=== PATIENT | female | born 1940 | race Caucasian/White ===

== ENCOUNTER 2018-03-29 07:47 | Outpatient (CLI) | payer MEDICARE, BC ==
--- NOTE | 2018-03-29 11:05 | MRI ---
MRI LUMBAR SPINE NONCONTRAST: DATE: 03-29-18 HISTORY: 77-year-old female with M48.061 spinal stenosis of lumbar region. Low back pain and bilateral lumbar radiculopathy. COMPARISON: No prior MRIs or CTs of the lumbar spine. FINDINGS: There is an approximately 2 x 1 cm well circumscribed oval lesion in the posterior aspect of the left kidney which is T2 hyperintense and T1 isointense to renal parenchyma (imaged 3 of 57, series 6). Th is could be a benign renal cyst, but further evaluation with renal ultrasound is recommended to be reynolds re that this is not a solid renal neoplasm. There are transitional levels at the thoracolumbar lumbar junction and lumbosacral junction. Review o f the chest CT of 03-16-14 demonstrates 13 paired ribs. For the purposes of this report, the level wit h bilaterally small (accessory) ribs will be designated at L1. Consequently, the last lumbar type conner tebra will be L6 rather than L5. Vertebral body heights are maintained. There is a mild lateral curvature of the lumbar spine. T12-L1: Not included on axial images. Moderate disc space narrowing. Diffuse disc bulge. No severe ce ntral stenosis. Mild to moderate bilateral neural foraminal stenosis. L1-2: Disc space maintained. Mild disc bulge. Conus medullaris terminates at upper to mid L2 level. N o central stenosis. Mild to moderate right neural foraminal stenosis. No significant left neural for aminal stenosis. L2-3: Mild disc bulge. No central stenosis. Mild to moderate bilateral neural foraminal stenosis. Mil d disc space narrowing. L3-4: Mild to moderate disc space narrowing. Mild diffuse disc bulge. Moderate bilateral neural juan inal stenosis, right greater than left. Mild central stenosis. Mild right degenerative facet changes. L4-5: Moderate disc space narrowing. Prominent diffuse disc bulge. Mild to moderate right neural fora [place] stenosis. Moderate left neural foraminal stenosis. Mild to moderate central spinal canal stenos is. Mild to moderate thecal sac stenosis. Mild bilateral degenerative facet changes. L5-6: Moderate to severe disc space narrowing, especially on the left side, where there is Modic type I bone marrow edema of the endplates, with numerous tiny endplate irregularities. Mild right neural foraminal stenosis. Moderate left neural foraminal stenosis. Mild right degenerative facet change. Mo derate left degenerative facet changes. Mild to moderate central spinal canal stenosis. L6-S1: Slightly hypoplastic disc without significant degenerative changes. No central or neural juan inal stenosis. No significant degenerative facet changes. IMPRESSION: 1. Transitional levels at thoracolumbar junction and lumbosacral junction (including L6). 2. Lumbar spondylosis, with multilevel mild and moderate degenerative disc disease, worst on the left side at L5-6. 3. Several levels of mild/moderate neural foraminal stenosis. 4. No severe central spinal canal stenosis at any level. 5. A 2 cm left renal lesion. Recommend further evaluation, beginning with renal ultrasound. LEE Marley POS: [facility]
== END 2018-03-29 07:48 | disposition home or self-care (01) ==
LOC: TBSIIMAG 07:47
PROVIDERS: ATTEND Orthopaedic Surgery
DX: M48.061 Spinal stenosis, lumbar region without neurogenic claudication (principal); M47.896 Other spondylosis, lumbar region; M51.36 Other intervertebral disc degeneration, lumbar region; M99.83 Other biomechanical lesions of lumbar region; N28.89 Other specified disorders of kidney and ureter
CPT/HCPCS: 72148

== ENCOUNTER 2018-04-08 09:16 | Outpatient (CLI) | payer MEDICARE, BC | END 2018-04-08 09:17 | disposition home or self-care (01) | LOC: BICULT 09:16 | PROVIDERS: ATTEND Urology | DX: N39.41 Urge incontinence (principal); R33.9 Retention of urine, unspecified; M54.5 Low back pain; G89.29 Other chronic pain | CPT/HCPCS: 76770 ==

== ENCOUNTER 2018-08-12 01:48 | Emergency (ER) | payer BC, MEDICARE ==
[2018-08-12] MEDS ORDERED: cloNIDine 0.1 MG TAB PO SCH (05:30)
--- NOTE | 2018-08-12 12:17 | RAD ---
PORTABLE CHEST: Date 08/12/18 HISTORY: Chest pain. FINDINGS: Lungs appear clear of infiltrate. No evidence of vascular congestion. Heart size upper normal range. IMPRESSION: No acute process. POS: [facility]
--- NOTE | 2018-08-12 13:03 | CT ---
CT PULMONARY ANGIOGRAM WITH IV CONTRAST AND 3D POSTPROCESSING: HISTORY: Chest pain, recent back surgery. FINDINGS: There is good contrast opacification of the pulmonary arterial vasculature without filling defect to suggest pulmonary embolism. There is mild dilatation of the right main pulmonary artery. The possib ility of pulmonary arterial hypertension should be considered. The thoracic aorta is well opacified without aneurysm or dissection. No pleural or pericardial effusions are identified. There are mild dependent changes of the lung bases. No pneumothoraces, lobar consolidation, or lung masses are seen . There are degenerative changers in the spine. A moderate-sized hiatal hernia is present. IMPRESSION: No CT evidence of pulmonary embolism. Findings were discussed in person with Dr. Henry at 5:50 a.m. DOMINICK SWAN POS: [facility]
[2018-08-12] MEDS ORDERED: ISOVUE-370 76%-LOCM 1 ML ONE (15:04)
[2018-08-12 17:25] LABS: ALT (SGPT) 15 U/L (8-55); AST (SGOT) 21 U/L (5-34); Albumin 3.5 g/dL (3.4-4.8); Alkaline Phosphatase 87 U/L (40-150); Anion Gap 12 mmol/L (10-20); BUN (Urea Nitrogen) 10 mg/dL (9.8-20.1); Bilirubin, Total 0.4 mg/dL (0.2-1.2); Calc. Creatinine Clearance 0 mL/min (70-130); Carbon Dioxide 23 mmol/L (23-31); Chloride 105 mmol/L (98-107); Estimated GFR-MDRD 70; Globulin 3.3 g/dL (2.4-3.5); Glucose 103 mg/dL (83-110); Potassium 3.5 mmol/L (3.5-5.1); Protein, Total 6.8 g/dL (6.0-8.3); Sodium 136 mmol/L (136-145)
[2018-08-12 17:26] LABS: #Eosinphils 0.2 thou/uL (0.0-0.7); #Lymphocytes 1.1 thou/uL (1.20-3.40); #Monocytes 0.5 thou/uL (0.11-0.59); #Neutrophils 3.6 thou/uL (1.40-6.50); %Basophils 0.7 % (0.0-1.0); %Eosinophils 3.3 % (0.0-10.0); %Lymphocytes 20.3 % (21.0-51.0); %Monocytes 9.4 % (0.0-10.0); %Neutrophils 66.4 % (42.0-75.0); CKMB 1.5 ng/mL (0-6.6); Hemoglobin 10.2 g/dL (12.0-16.0); Mean Corpuscular HGB CONC 33.6 g/dL (32.0-36.0); Mean Corpuscular Volume 92.4 fL (78.0-98.0); Mean Platelet Volume 6.9 fL (7.4-10.4); Platelet Count 423 thou/uL (130-400); RBC Distribution Width 11.2 % (11.5-14.5); Red Blood Cell (RBC) Count 3.29 mill/uL (4.20-5.40); Troponin I Less than 0.010 ng/mL (< 0.028); White Blood Cell (WBC) Count 5.4 thou/uL (4.8-10.8)
[2018-08-12 19:13] LABS: INR-International Normal Ratio 1.4; PTT 37.6 SEC (22.9-36.1); Prothrombin Time 17.2 SEC (12.0-14.7)
== END 2018-08-12 11:34 | disposition home or self-care (01) ==
LOC: ERS 01:48
DX: R07.2 Precordial pain (principal); I48.91 Unspecified atrial fibrillation; K21.9 Gastro-esophageal reflux disease without esophagitis; I10 Essential (primary) hypertension; F41.9 Anxiety disorder, unspecified
CPT/HCPCS: 71045; 71275; 80053; 82553; 84484; 85025; 85610; 85730; 93005

== ENCOUNTER 2018-08-18 14:22 | Observation (INO) | payer MEDICARE, BC ==
[2018-08-18 15:20] LABS: #Basophils 0.1 thou/uL (0.0-0.2); #Eosinphils 0.2 thou/uL (0.0-0.7); #Lymphocytes 1.6 thou/uL (1.20-3.40); #Monocytes 0.6 thou/uL (0.11-0.59); #Neutrophils 3.3 thou/uL (1.40-6.50); %Basophils 1.1 % (0.0-1.0); %Eosinophils 2.9 % (0.0-10.0); %Lymphocytes 28.2 % (21.0-51.0); %Monocytes 10.3 % (0.0-10.0); %Neutrophils 57.5 % (42.0-75.0); Hemoglobin 12.3 g/dL (12.0-16.0); Mean Corpuscular Hemoglobin 29.5 pg (27.0-31.0); Mean Corpuscular Volume 95.1 fL (78.0-98.0); Mean Platelet Volume 6.8 fL (7.4-10.4); Platelet Count 411 thou/uL (130-400); RBC Distribution Width 11.6 % (11.5-14.5); Red Blood Cell (RBC) Count 4.16 mill/uL (4.20-5.40); White Blood Cell (WBC) Count 5.8 thou/uL (4.8-10.8)
--- NOTE | 2018-08-18 15:23 | RAD ---
CHEST ONE VIEW PORTABLE: History: 68-year-old female with history of dyspnea and shortness of breath. Comparison: 08-12-18 FINDINGS: Monitor leads overlie the chest. Stable pleural thickening and calcification in the left upper outer chest wall region. No confluent pneumonia, overt edema, or pleural effusion. IMPRESSION: Chronic stable changes. No acute intrathoracic disease. POS: [facility]
[2018-08-18 15:43] LABS: ALT (SGPT) 16 U/L (8-55); AST (SGOT) 24 U/L (5-34); Albumin 3.9 g/dL (3.4-4.8); Alkaline Phosphatase 135 U/L (40-150); Anion Gap 13 mmol/L (10-20); BUN (Urea Nitrogen) 11 mg/dL (9.8-20.1); Bilirubin, Total 0.4 mg/dL (0.2-1.2); CK (CPK) 82 U/L (29-168); Calc. Creatinine Clearance 0 mL/min (70-130); Calcium 9.5 mg/dL (7.8-10.44); Carbon Dioxide 19 mmol/L (23-31); Chloride 108 mmol/L (98-107); Estimated GFR-MDRD 62; Globulin 3.9 g/dL (2.4-3.5); Glucose 93 mg/dL (83-110); Potassium 4.4 mmol/L (3.5-5.1); Protein, Total 7.8 g/dL (6.0-8.3); Sodium 136 mmol/L (136-145)
[2018-08-18 15:48] LABS: CKMB 1.5 ng/mL (0-6.6)
[2018-08-18 16:03] LABS: Troponin I Less than 0.010 ng/mL (< 0.028)
[2018-08-18] MEDS ORDERED: Nitroglycerin 0.4 MG TAB (25 Tab Bottle) ONE (17:13)
[2018-08-18 19:52] LABS: Troponin I Less than 0.010 ng/mL (< 0.028)
[2018-08-18 22:46] VITALS: BMI 25.7
[2018-08-18 22:59] LABS: Troponin I Less than 0.010 ng/mL (< 0.028)
[2018-08-19] MEDS ORDERED: Nitroglycerin 0.4 MG TAB (25 Tab Bottle) PO PRN (02:51)
[2018-08-19] MEDS ORDERED: ALPRAZolam 0.25 MG TAB PO PRN (02:53)
[2018-08-19] MEDS ORDERED: Ondansetron ODT 4 MG TAB PO PRN (02:56)
--- NOTE | 2018-08-19 03:48 | HP ---
CHIEF COMPLAINT: Shortness of breath. HISTORY OF PRESENT ILLNESS: This is a 77-year-old pleasant female with past medical history of atrial fibrillation, GERD, hypertension, benign positional vertigo, anxiety, presenting with shortness of breath, which started in the morning of admission. Per the patient, her shortness of breath was accompanied with some chest tightness. Patient denies any cough, fever, nausea, vomiting, abdominal pain states that nothing seems to really help with this conditions and this is the reason why she came to the ED. Patient denies any fever, chills , cough, diaphoresis, nausea. REVIEW OF SYSTEMS: Positive for shortness of breath, chest pressure, otherwise as documented in the HPI. All other systems were reviewed and are negative. PAST MEDICAL HISTORY: Arrhythmia, such as atrial fibrillation, GERD, hypertension, vertigo. FAMILY HISTORY: Reviewed and noncontributory. PAST SURGICAL HISTORY: Bladder suspension, cholecystectomy, hysterectomy, hip replacement, and back surgery 2 weeks ago. PSYCHIATRIC HISTORY: Anxiety. SOCIAL HISTORY: Patient denies any illicit drug use. Patient denies any alcohol use and patient denies any tobacco use. Patient lives at home alone. KNOWN ALLERGIES: Patient is allergic to CIPRO, DEMEROL, PENICILLIN, and SULFA. CURRENT MEDICATIONS: Patient is on Eliquis 5 mg, alprazolam 0.5 t.i.d., amlodipine 5 mg, Multaq 4 mg, Coreg. PHYSICAL EXAMINATION: VITAL SIGNS: Blood pressure 158/98, pulse is 72, respiratory rate of 16, temperature of 98.5, O2 sat is 100. GENERAL: Patient is alert, oriented x3, not in acute distress. Patient is lying in bed comfortably, speaking in full sentences. HEENT: Normocephalic, atraumatic. Pupils are equal, round, and react to light. Extraocular movements are intact. No scleral icterus. No conjunctival pallor. Mucous membranes are moist. NECK: No JVDs. Trachea is midline. LUNGS: Clear to auscultation bilaterally. No wheezing, no rales, no rhonchi appreciated. CARDIOVASCULAR: Positive S1, S2. Regular rate and rhythm. No murmurs, no gallops or rubs appreciated. ABDOMEN: Soft, nontender, nondistended, positive bowel sounds in all quadrants. No guarding, no rigidity. BACK: Surgical site in the back is well healed. No signs of infection. EXTREMITIES: Upper extremity, patient had 5/5 upper extremity strength and 5/5 in lower extremity strength with good pulses bilaterally in the upper extremity and lower extremities. No edema noted. NEUROLOGIC: Cranial nerves II-XII grossly intact. No neurologic deficits noted. SKIN: Warm, dry, and intact. PSYCHIATRIC: Normal affect. IMAGING: EKG shows atrial fibrillation with controlled ventricular response. EMERGENCY DEPARTMENT COURSE: Patient received aspirin and nitroglycerin. LABORATORY DATA: WBC is 5.8, hemoglobin 12.3, hematocrit is 39.5, platelet count is 411. Sodium is 136, potassium is 4.4, chloride is 108, carbon dioxide of 19, BUN of 11, creatinine of 0.88. AST 24, ALT 16, alkaline phosphatase 135. Troponin is less than 0.010 x2. ASSESSMENT AND PLAN: This is a 77-year-old female being admitted for: 1. Chest pain, rule out acute coronary syndrome. We have ordered echo stress test and we will follow up on these test. Patient has been started on aspirin. We will start patient on her home medications. Currently, patient is made n.p.o. for the procedure of stress test in the morning. 1. Deep venous thrombosis and gastrointestinal prophylaxis, patient is on Eliquis and we will continue Pepcid. 2. History of atrial fibrillation, currently controlled. We will continue patient on her current medications. 3. History of anxiety, currently stable. We will continue patient on her current management. 4. History of gastroesophageal reflux disease. Currently, patient is on Pepcid. We will continue. 5. History of vertigo. Currently, patient is stable. 6. Hypertension. Patient is currently stable on her home medications. MTDD
[2018-08-19] MEDS: Acetaminophen 325 MG TAB PO PRN ×2 (04:59→23:36)
[2018-08-19 05:05] LABS: #Eosinphils 0.2 thou/uL (0.0-0.7); #Lymphocytes 1.3 thou/uL (1.20-3.40); #Monocytes 0.6 thou/uL (0.11-0.59); #Neutrophils 3.5 thou/uL (1.40-6.50); %Basophils 0.4 % (0.0-1.0); %Eosinophils 3.2 % (0.0-10.0); %Lymphocytes 23.8 % (21.0-51.0); %Monocytes 10.3 % (0.0-10.0); %Neutrophils 62.3 % (42.0-75.0); Hemoglobin 11.5 g/dL (12.0-16.0); Mean Corpuscular HGB CONC 32.4 g/dL (32.0-36.0); Mean Corpuscular Hemoglobin 29.9 pg (27.0-31.0); Mean Corpuscular Volume 92.3 fL (78.0-98.0); Mean Platelet Volume 6.9 fL (7.4-10.4); Platelet Count 473 thou/uL (130-400); RBC Distribution Width 11.4 % (11.5-14.5); Red Blood Cell (RBC) Count 3.84 mill/uL (4.20-5.40); White Blood Cell (WBC) Count 5.6 thou/uL (4.8-10.8)
[2018-08-19 05:21] LABS: Anion Gap 9 mmol/L (10-20); BUN (Urea Nitrogen) 7 mg/dL (9.8-20.1); Calc. Creatinine Clearance 69 mL/min (70-130); Calcium 9.1 mg/dL (7.8-10.44); Carbon Dioxide 24 mmol/L (23-31); Chloride 108 mmol/L (98-107); Estimated GFR-MDRD 68; Glucose 100 mg/dL (83-110); Sodium 137 mmol/L (136-145)
[2018-08-19] MEDS ORDERED: Carvedilol 3.125 MG TAB PO SCH ×2 (09:00→14:15)
[2018-08-19] MEDS ORDERED: Amlodipine 5 MG TAB PO SCH ×2 (09:00→14:15)
[2018-08-19] MEDS: Famotidine 20 MG TAB PO SCH ×2 (12:28→20:33)
[2018-08-19] MEDS: Dronedarone HCl 400 MG TAB PO SCH ×2 (12:28→18:38)
[2018-08-19] MEDS: Apixaban 5 MG TAB PO SCH ×2 (12:28→20:33)
[2018-08-19] MEDS: Prevnar 13-Val Conj/PF 0.5 ML SYRINGE IM ONE ×2 (12:28→12:37)
--- NOTE | 2018-08-19 12:51 | NM ---
RADIONUCLIDE STRESS REST MYOCARDIAL PERFUSION SCAN WITH CT ATTENUATION CORRECTION AND SPECT IMAGING LEFT VENTRICULAR WALL MOTION EVALUATION AND EJECTION FRACTION: FINDINGS: Adenosine protocol. There is homogeneous uptake of radiotracer throughout the left ventricular myocar dium. No focal perfusion defect or reversibility. QGS analysis of gated SPECT images shows no focal wall motion abnormalities. Ejection fraction calculated at greater than 80%. IMPRESSION: Normal myocardial perfusion scan. Normal left ventricular ejection fraction. POS: [facility]
--- NOTE | 2018-08-19 13:31 | PDOC.EVN ---
Event Note - Event Note Event Note: Pt seen and examined with Go Coulter PA-C. I have seen and evaluated the pateint and reviewed all documentations. I agree with the findings and plan as outlined in his note for stress test, normal. Echo pending
[2018-08-19] MEDS ORDERED: hydrALAZINE 20 MG/ML VIAL SLOW IVP PRN (14:01)
[2018-08-19] MEDS ORDERED: ADENOSINE 60 MG/20 ML VIAL ONE (15:13)
--- NOTE | 2018-08-19 17:18 | PDOC.PN ---
- Subjective Encounter Start Date: 08/19/18 Encounter Start Time: 17:16 Patient lying in bed, she reports some chest pressure. Troponins negative x3. She underwent stress test which was found to be unremarkable. BP elevated today , so her home norvasc and coreg were increased. Echo results pending. No shortness of breath, abdominal pain, nausea, vomiting. She remains in sinus rhythm on the monitor. - Objective Resuscitation Status: Resuscitation Status FULL:Full Resuscitation MAR Reviewed: Yes Vital Signs & Weight: Vital Signs (12 hours) Temp Pulse Pulse Pulse Resp BP BP 08/19/18 15:33 97.9 F 66 15 08/19/18 15:21 69 08/19/18 13:57 69 08/19/18 12:28 87 08/19/18 12:07 76 79 144/70 H 197/83 H 08/19/18 11:41 97.3 F L 87 24 H 08/19/18 07:46 97.8 F 72 20 BP Pulse Ox Pulse Ox Pulse Ox 08/19/18 15:33 157/74 H 95 08/19/18 15:21 08/19/18 13:57 189/81 H 08/19/18 12:28 08/19/18 12:07 99 98 08/19/18 11:41 199/88 H 97 08/19/18 07:46 192/85 H 96 Weight Weight 164 lb 3.2 oz I&O: 08/18/18 08/19/18 08/20/18 06:59 06:59 06:59 Output Total 300 Balance -300 Result Diagrams: 08/19/18 04:37 08/19/18 04:37 Radiology Reviewed by me: Yes EKG Reviewed by me: Yes Phys Exam - Physical Examination Constitutional: NAD HEENT: PERRLA, moist MMs, sclera anicteric, oral pharynx no lesions Neck: no nodes, no JVD, supple Respiratory: no wheezing, no rales, no rhonchi, clear to auscultation bilateral Cardiovascular: RRR, no significant murmur, no rub Gastrointestinal: soft, non-tender, no distention Musculoskeletal: no edema, pulses present Neurological: non-focal, normal sensation, moves all 4 limbs Lymphatic: no nodes Psychiatric: normal affect, A&O x 3 Skin: no rash, normal turgor, cap refill <2 seconds Deviation from normal: Face is flush, but she denies fever/chills or any symptoms at this time Dx/Plan (1) Chest pain Code(s): R07.9 - CHEST PAIN, UNSPECIFIED Status: Acute (2) Shortness of breath Code(s): R06.02 - SHORTNESS OF BREATH Status: Acute (3) Hypertension Code(s): I10 - ESSENTIAL (PRIMARY) HYPERTENSION Status: Acute (4) History of atrial fibrillation Code(s): Z86.79 - PERSONAL HISTORY OF OTHER DISEASES OF THE CIRCULATORY SYSTEM Status: Acute - Plan cont current plan of care * Cardiology services following, stress test results discussed with patient. Echo results pending * Increase home norvasc to 10mg daily, coreg to 6.25mg * Hold discharge for echo results, likely discharged in the am if BP stable and echo negative
[2018-08-19] MEDS: Carvedilol 6.25 MG TAB PO SCH (18:38)
[2018-08-20 08:26] VITALS: TEMP 97.3
[2018-08-20] MEDS ORDERED: Amlodipine 10 MG TAB PO SCH (09:00)
[2018-08-20] MEDS: Carvedilol 6.25 MG TAB PO SCH (09:38)
[2018-08-20] MEDS: Famotidine 20 MG TAB PO SCH (09:39)
[2018-08-20] MEDS: Apixaban 5 MG TAB PO SCH (09:39)
[2018-08-20] MEDS: Dronedarone HCl 400 MG TAB PO SCH (09:40)
[2018-08-20 12:01] VITALS: BP 148/68
--- NOTE | 2018-08-20 14:45 | DIS ---
DATE OF ADMISSION: 08/18/2018 DATE OF DISCHARGE: 08/20/2018 DISCHARGE DIAGNOSES: 1. Chest pain, noncardiac. 2. Shortness of breath, resolved. 3. Hypertension, stable. 4. History of atrial fibrillation, currently controlled. 5. History of anxiety, stable. 6. History of gastroesophageal reflux disease, stable. 7. History of vertigo, stable. CONSULTATIONS: Cardiology services, Dr. Gann. PERTINENT LABORATORY AND DIAGNOSTIC FINDING: WBC 5.6, RBC 3.84, hemoglobin 11.5. Sodium 137, potass ium 4.0. Troponin less than 0.010 x3. AST 24, ALT 16. Portable chest x-ray revealed chronic stable changes with no acute disease. Cardiac stress test showed normal myocardial perfusion scan with nor mal left ventricular ejection fraction. Echocardiogram shows an EF of 55%-60%. HOSPITAL COURSE: Ms. Macias is a pleasant 77-year-old female who had presented to the ER with some c omplaints of chest pain, shortness of breath. She had noted symptoms for about one day before coming into the ER. She has a history of atrial fibrillation, she had remained in sinus rhythm throughout the hospital course. She also has a history of hypertension, anxiety, vertigo, and GERD. She was pl aced on her home medications, there was a consult placed for Cardiology, Dr. Gann. She was admitted to telemetry on observation floor, serial troponins were obtained which were found to be negative x3. She underwent cardiac stress test which revealed a normal myocardial perfusion scan, normal left ve ntricular EF. She also underwent an echocardiogram which revealed left ventricular EF of 55%-60%. D hospital course, it was found that she had a notable elevated blood pressure, her home medicati ons which included amlodipine and carvedilol were increased. Carvedilol was increased to 6.25 and am lodipine was increased to 10 mg daily. She had tolerated this well, and her blood pressure did in fa ct improve. She was provided with a 30-day supply of both of these new changes in her medications. She was seen and examined prior to discharge and she remained asymptomatic, no chest pain, no shortne ss of breath, no abdominal pain. No further symptoms at that time. Discharge care plan was then exp lained to her at that time to continue with increased dose of Norvasc and Coreg. She had verbalized her understanding of this care plan and she also was instructed to follow up with her primary care ph ysician, Dr. Jere Mooney. She then was determined to be medically stable for discharge home 018. DISCHARGE MEDICATIONS: 1. Amlodipine 10 mg daily. 2. Carvedilol 6.25 mg twice daily with meals. 3. Xanax 0.5 mg 3 times daily as needed for anxiety. 4. Multaq 40 mg twice daily with meals. 5. Eliquis 5 mg daily. FOLLOWUP: The patient is to follow up with her primary care physician, Dr. Mooney in 1-2 weeks, she is also to follow up with Dr. Gann, her primary manager pool in 1-2 weeks, she was instructed to allan l Dr. Gann' office and schedule an appointment at that time. CONDITION ON DISCHARGE: Stable. ACTIVITY: As tolerated. DIET: Heart healthy. CODE STATUS: FULL CODE. DISPOSITION: Home on 08/20/2018.
--- NOTE | 2018-08-22 08:32 | STRESS ---
Acquisition Time: 2018-08-19 10:24:28 Total Exercise Time: 00:04:00 Test Indications: CHEST PAIN Medications: Protocol: ADENOSINE Max HR: 095 BPM 65% of Pred: 144 BPM Max BP: 130/074 mmHG Max Work Load: 1.0 METS RESTING ECG: NORMAL SINUS RHYTHM AT 68 BPM WITH A COMPLETE RIGHT BUNDLE BRANCH BLOCK AND A LEFT AXIS DEVIATION. SYMPTOMS: DYSPNEA ON EXERTION; CHEST TIGHTNESS NORMAL BLOOD PRESSURE RESPONSE ECTOPY: NONE ECG STRESS: NO SIGNIFICANT CHANGES INTERPRETATION: INDETERMINATE ECG/ AWAIT NUCLEAR IMAGES FOR DEFINITIVE DIAGNOSIS Confirmed by RENE FORBES ([id number]) on 08/22/2018 8:32:22 AM Referred By: DO Teresita LIRA Confirmed By:RENE FORBES
== END 2018-08-20 12:00 | disposition home or self-care (01) ==
LOC: ERS 14:22 → 2SW 18:58
PROVIDERS: ADMIT Internal Medicine; ATTEND Internal Medicine
DX: R07.89 Other chest pain (principal); R06.02 Shortness of breath; I48.91 Unspecified atrial fibrillation; K21.9 Gastro-esophageal reflux disease without esophagitis; I10 Essential (primary) hypertension; F41.9 Anxiety disorder, unspecified; R42 Dizziness and giddiness; Z79.01 Long term (current) use of anticoagulants; Z79.899 Other long term (current) drug therapy; Z88.0 Allergy status to penicillin; Z88.1 Allergy status to other antibiotic agents; Z88.2 Allergy status to sulfonamides; Z88.5 Allergy status to narcotic agent
CPT/HCPCS: 71045; 78452; 80048; 80053; 82550; 82553; 84484 ×2; 85025 ×2; 90670; 93005; 93017; 93306; 94760; 97116 ×2; 97530; 99285; A9500; G0009; G0378 ×2; G8978; G8979; 36415; 90471; J0153; J0360

== ENCOUNTER 2019-06-05 14:40 | Emergency (ER) | payer MEDICARE, BC ==
[~2019-06-05 14:40] MED LIST: ISOVUE-370 76%-LOCM 1 ML ONE
[2019-06-05 15:16] LABS: #Eosinphils 0.2 thou/uL (0.0-0.7); #Lymphocytes 2.1 thou/uL (1.20-3.40); #Monocytes 0.7 thou/uL (0.11-0.59); %Basophils 0.1 % (0.0-1.0); %Eosinophils 2.3 % (0.0-10.0); %Lymphocytes 30.6 % (21.0-51.0); %Monocytes 9.5 % (0.0-10.0); %Neutrophils 57.5 % (42.0-75.0); Hemoglobin 13.5 g/dL (12.0-16.0); Mean Corpuscular HGB CONC 32.9 g/dL (32.0-36.0); Mean Corpuscular Hemoglobin 29.5 pg (27.0-31.0); Mean Corpuscular Volume 89.5 fL (78.0-98.0); Platelet Count 338 thou/uL (130-400); RBC Distribution Width 11.8 % (11.5-14.5); Red Blood Cell (RBC) Count 4.57 mill/uL (4.20-5.40)
[2019-06-05 15:34] LABS: ALT (SGPT) 12 U/L (8-55); AST (SGOT) 21 U/L (5-34); Albumin 4.3 g/dL (3.4-4.8); Alkaline Phosphatase 95 U/L (40-150); Anion Gap 14 mmol/L (10-20); BUN (Urea Nitrogen) 10 mg/dL (9.8-20.1); Bilirubin, Total 0.4 mg/dL (0.2-1.2); Calc. Creatinine Clearance 0 mL/min (70-130); Calcium 10.1 mg/dL (7.8-10.44); Carbon Dioxide 22 mmol/L (23-31); Chloride 105 mmol/L (98-107); Estimated GFR-MDRD 50; Glucose 89 mg/dL (83-110); Lipase 26 U/L (8-78); Potassium 4.1 mmol/L (3.5-5.1); Protein, Total 8.3 g/dL (6.0-8.3); Sodium 137 mmol/L (136-145)
--- NOTE | 2019-06-05 17:49 | CT ---
CT of the abdomen and pelvis: 06/05/2019 COMPARISON: None HISTORY: Diarrhea, nausea, weakness TECHNIQUE: Axial CT imaging at 5 mm intervals from lung bases through pubic symphysis with IV contras t. Coronal reformatted imaging obtained. FINDINGS: The imaged lung bases are unremarkable. No free intraperitoneal air or fluid is seen. There is a moderate-sized hiatal hernia. The spleen, liver, adrenal glands, and kidneys are unremarkable. The gallbladder is nonvisualized sug gesting prior cholecystectomy. There is postoperative hardware associated with fusion surgery at the lumbosacral junction. There is a hip arthroplasty on the left. Streak artifact limits detailed assessment of the left hemipelvis. There is no evidence for bowel inflammatory change or bowel obstruction. The appendix is not discrete ly visualized but no right lower quadrant inflammatory change is seen. Scattered atherosclerotic calcification of the abdominal aorta and its branches noted. No abdominal o r pelvic lymphadenopathy. Review of the osseous structures demonstrates no acute osseous abnormality. IMPRESSION: Multiple incidental findings as detailed above. No acute findings are seen.
[2019-06-05 18:36] LABS: Bilirubin Negative (Negative); Blood, Urine Negative (Negative); Clarity Turbid (Clear); Glucose, Urine (Dipstick) Normal (Negative); Leukocyte 500 Leu/uL (Negative); Nitrite 2+ (Negative); Protein, Urine (Dipstick) Negative (Neg-Trace); Squamous Epithelial 0-3 HPF (0-3); Urobilinogen Normal mg/dL (Less than 2); WBC/HPF Greater than 50 HPF (0-3)
[2019-06-05 18:46] LABS: Bacteria/HPF 3+ HPF (None Seen); RBC/HPF 0-3 HPF (0-3)
== END 2019-06-05 19:35 | disposition home or self-care (01) ==
LOC: ERS 14:40
DX: N39.0 Urinary tract infection, site not specified (principal); R19.7 Diarrhea, unspecified; I48.91 Unspecified atrial fibrillation; I10 Essential (primary) hypertension; K21.9 Gastro-esophageal reflux disease without esophagitis
CPT/HCPCS: 36415; 74177; 80053; 81003; 81015; 83690; 83735; 84484; 85025; 87077; 87086; 87186; 93005; Q9966

== ENCOUNTER 2024-01-05 16:24 | Inpatient (IN) | payer MEDICARE ==
[2024-01-05 17:05] LABS: #Eosinphils 0.2 thou/uL (0.0-0.7); #Monocytes 0.7 thou/uL (0.11-0.59); #Neutrophils 3.3 thou/uL (1.40-6.50); %Basophils 0.6 % (0.0-1.0); %Eosinophils 3.8 % (0.0-10.0); %Lymphocytes 31.9 % (21.0-51.0); %Monocytes 11.2 % (0.0-10.0); %Neutrophils 52.3 % (42.0-75.0); Hematocrit 27.3 % (36.0-47.0); Hemoglobin 8.7 g/dL (12.0-16.0); Mean Corpuscular HGB CONC 31.9 g/dL (32.0-36.0); Mean Corpuscular Hemoglobin 28.2 pg (27.0-31.0); Mean Corpuscular Volume 88.6 fl (78.0-98.0); Mean Platelet Volume 9.5 fL (7.4-10.4); Platelet Count 342 10x3/uL (130-400); RBC Distribution Width 13.9 % (11.5-14.5); Red Blood Cell (RBC) Count 3.08 mill/uL (4.20-5.40); White Blood Cell (WBC) Count 6.4 10x3/uL (4.8-10.8)
[2024-01-05 17:23] LABS: ALT (SGPT) 13 U/L (8-55); AST (SGOT) 21 U/L (5-34); Alkaline Phosphatase 140 U/L (40-110); Anion Gap 12 mmol/L (10-20); BUN (Urea Nitrogen) 22 mg/dL (9.8-20.1); Bilirubin, Total 0.2 mg/dL (0.2-1.2); Calc. Creatinine Clearance 0 mL/min (70-130); Calcium 9.1 mg/dL (7.8-10.44); Carbon Dioxide 23 mmol/L (23-31); Chloride 105 mmol/L (98-107); Estimated GFR 40; Globulin 3.4 g/dL (2.4-3.5); Glucose 94 mg/dL (83-110); Magnesium 2.1 mg/dL (1.6-2.6); Potassium 4.7 mmol/L (3.5-5.1); Protein, Total 7.4 g/dL (5.8-8.1); Sodium 135 mmol/L (136-145)
[2024-01-05 17:25] LABS: Troponin I Less than 0.010 ng/mL (< 0.028)
[2024-01-05] MEDS ORDERED: Acetaminophen 500 MG TAB ONE (17:52)
[2024-01-05] MEDS ORDERED: Nitroglycerin 0.4 MG TAB (25 Tab Bottle) SL PRN (20:16)
[2024-01-05] MEDS ORDERED: Ondansetron ODT 4 MG TAB PO PRN (20:17)
[2024-01-05] MEDS ORDERED: Acetaminophen 325 MG TAB PO PRN (20:17)
[2024-01-05] MEDS ORDERED: ALPRAZolam 0.5 MG TAB PO PRN (20:36)
[2024-01-05 20:57] VITALS: BMI 27.1
[2024-01-05] MEDS ORDERED: Famotidine 20 MG TAB ONE (21:07)
[2024-01-05] MEDS: Famotidine 20 MG TAB PO SCH (21:08)
[2024-01-05] MEDS: Lactated Ringer's 500 ML IV SCH (21:21)
[2024-01-06 00:35] LABS: Troponin I Less than 0.010 ng/mL (< 0.028)
[2024-01-06 03:59] LABS: #Eosinphils 0.3 thou/uL (0.0-0.7); #Monocytes 0.6 thou/uL (0.11-0.59); #Neutrophils 2.6 thou/uL (1.40-6.50); %Basophils 0.8 % (0.0-1.0); %Eosinophils 4.9 % (0.0-10.0); %Lymphocytes 31.8 % (21.0-51.0); %Monocytes 11.1 % (0.0-10.0); %Neutrophils 51.2 % (42.0-75.0); Hematocrit 27.4 % (36.0-47.0); Hemoglobin 8.7 g/dL (12.0-16.0); Mean Corpuscular HGB CONC 31.8 g/dL (32.0-36.0); Mean Corpuscular Hemoglobin 27.6 pg (27.0-31.0); Mean Platelet Volume 9.3 fL (7.4-10.4); Platelet Count 325 10x3/uL (130-400); RBC Distribution Width 13.9 % (11.5-14.5); Red Blood Cell (RBC) Count 3.15 mill/uL (4.20-5.40); White Blood Cell (WBC) Count 5.1 10x3/uL (4.8-10.8)
[2024-01-06 04:17] LABS: Anion Gap 13 mmol/L (10-20); BUN (Urea Nitrogen) 18 mg/dL (9.8-20.1); Calc. Creatinine Clearance 42 mL/min (70-130); Calcium 9.4 mg/dL (7.8-10.44); Carbon Dioxide 22 mmol/L (23-31); Cardiac Risk 2.8 (Less than 4.5); Chloride 108 mmol/L (98-107); Cholesterol 137 mg/dl (< 200 Desired); Estimated GFR 46; Glucose 95 mg/dL (83-110); HDL Cholesterol 49 mg/dL (>60 Neg Risk); LDL Cholesterol, Calculated 69 mg/dL; Potassium 4.5 mmol/L (3.5-5.1); Sodium 138 mmol/L (136-145); Triglycerides 93 mg/dL (Less than 150)
[2024-01-06] MEDS: Carvedilol 6.25 MG TAB PO SCH (08:06)
[2024-01-06] MEDS: Furosemide 20 MG TAB PO SCH (08:09)
[2024-01-06] MEDS: Apixaban 5 MG TAB PO SCH (08:09)
[2024-01-06] MEDS: Amlodipine 5 MG TAB PO SCH (08:09)
[2024-01-06 08:32] LABS: Bacteria/HPF None Seen HPF (None Seen); Bilirubin Negative (Negative); Blood, Urine Negative (Negative); Clarity Clear (Clear); Glucose, Urine (Dipstick) Normal (Negative); Ketone, Urine Negative (Negative); Leukocyte 25 Leu/uL (Negative); Nitrite Negative (Negative); Protein, Urine (Dipstick) Negative (Neg-Trace); RBC/HPF 0-3 HPF (0-3); Specific Gravity, Urine 1.007 (1.002-1.036); Squamous Epithelial None Seen HPF (0-3); Urobilinogen Normal mg/dL (Less than 2); WBC/HPF 0-3 HPF (0-3); pH, Urine 7.5 (5.0-9.0)
[2024-01-06] MEDS ORDERED: Carvedilol 6.25 MG TAB ONE (17:41)
[2024-01-06 18:41] LABS: Troponin I Less than 0.010 ng/mL (< 0.028)
[2024-01-06] MEDS ORDERED: hydrALAZINE 20 MG/ML VIAL ONE (18:52)
[2024-01-06] MEDS: hydrALAZINE 20 MG/ML VIAL SLOW IVP PRN (18:54)
[2024-01-06] MEDS: Atorvastatin Calcium 40 MG TAB PO SCH (20:23)
[2024-01-07 05:17] LABS: #Monocytes 0.6 thou/uL (0.11-0.59); #Neutrophils 4.9 thou/uL (1.40-6.50); %Basophils 0.4 % (0.0-1.0); %Eosinophils 0.6 % (0.0-10.0); %Lymphocytes 20.5 % (21.0-51.0); %Monocytes 8.8 % (0.0-10.0); %Neutrophils 69.4 % (42.0-75.0); Hematocrit 32.6 % (36.0-47.0); Hemoglobin 10.3 g/dL (12.0-16.0); Mean Corpuscular HGB CONC 31.6 g/dL (32.0-36.0); Mean Corpuscular Volume 85.6 fl (78.0-98.0); Mean Platelet Volume 9.6 fL (7.4-10.4); Platelet Count 407 10x3/uL (130-400); Red Blood Cell (RBC) Count 3.81 mill/uL (4.20-5.40)
[2024-01-07 05:41] LABS: Anion Gap 15 mmol/L (10-20); BUN (Urea Nitrogen) 14 mg/dL (9.8-20.1); Calc. Creatinine Clearance 47 mL/min (70-130); Calcium 9.6 mg/dL (7.8-10.44); Carbon Dioxide 20 mmol/L (23-31); Chloride 106 mmol/L (98-107); Estimated GFR 53; Glucose 113 mg/dL (83-110); Potassium 3.7 mmol/L (3.5-5.1); Sodium 137 mmol/L (136-145)
[2024-01-07] MEDS ORDERED: ADENOSINE 60 MG/20 ML SDV ONE (13:07)
[2024-01-07] MEDS: Escitalopram Oxalate 10 mg Tablet PO SCH (15:34)
[2024-01-07] MEDS: Aspirin 81 mg Enteric Coated Tablet PO SCH (15:34)
[2024-01-07] MEDS: Dronedarone HCl 400 MG TAB PO SCH (15:35)
[2024-01-08 08:21] VITALS: TEMP 98.4
[2024-01-08 09:57] VITALS: BP 173/83
== END 2024-01-08 12:02 | disposition home or self-care (01) | DRG 313 ==
LOC: ERS 16:24 → ERHOLD 20:19 → 2SE 01-06 19:05 → OBSVTOIN 01-07 14:17
PROVIDERS: ADMIT Student in an Organized Health Care Education/Training Program; ATTEND Internal Medicine
DX: R07.89 Other chest pain (principal); I50.32 Chronic diastolic (congestive) heart failure; N17.9 Acute kidney failure, unspecified; I48.91 Unspecified atrial fibrillation; D64.9 Anemia, unspecified; Z88.0 Allergy status to penicillin; Z88.2 Allergy status to sulfonamides; Z88.1 Allergy status to other antibiotic agents; Z79.899 Other long term (current) drug therapy; Z79.01 Long term (current) use of anticoagulants; I11.0 Hypertensive heart disease with heart failure; Z90.49 Acquired absence of other specified parts of digestive tract; Z90.710 Acquired absence of both cervix and uterus; Z98.49 Cataract extraction status, unspecified eye; K21.9 Gastro-esophageal reflux disease without esophagitis; F41.9 Anxiety disorder, unspecified; F32.A Depression, unspecified; I45.10 Unspecified right bundle-branch block
CPT/HCPCS: 36415; 71045; 78452; 80048; 80053; 80061; 81001; 83735; 83880; 84484; 85025; 93005; 93017; 94760; 96374; A9502; G0378; J0153; J0360; J7120

== ENCOUNTER 2024-04-17 10:52 | Emergency (ER) | payer MEDICARE ==
[2024-04-17 11:48] LABS: #Basophils 0.03 10x3/uL (0.0-0.2); %Basophils 0.5 % (0.0-1.0); %Lymphocytes 21.6 % (21.0-51.0); %Monocytes 9.8 % (0.0-10.0); %Neutrophils 65.6 % (42.0-75.0); Hematocrit 28.4 % (36.0-47.0); Hemoglobin 8.6 g/dL (12.0-16.0); Mean Corpuscular HGB CONC 30.3 g/dL (32.0-36.0); Mean Corpuscular Hemoglobin 24.7 pg (27.0-31.0); Mean Corpuscular Volume 81.6 fL (78.0-98.0); Mean Platelet Volume 9.2 fL (7.4-10.4); Platelet Count 346 10x3/uL (130-400); RBC Distribution Width 14.7 % (11.5-14.5); Red Blood Cell (RBC) Count 3.48 mill/uL (4.20-5.40)
[2024-04-17 12:04] LABS: ALT (SGPT) 10 U/L (8-55); AST (SGOT) 19 U/L (5-34); Albumin 3.6 g/dL (3.4-4.8); Alkaline Phosphatase 105 U/L (40-110); Anion Gap 14 mmol/L (10-20); BUN (Urea Nitrogen) 11 mg/dL (9.8-20.1); Bilirubin, Total 0.4 mg/dL (0.2-1.2); Calc. Creatinine Clearance 0 mL/min (70-130); Carbon Dioxide 21 mmol/L (23-31); Chloride 106 mmol/L (98-107); Estimated GFR 56; Globulin 4.1 g/dL (2.4-3.5); Glucose 90 mg/dL (83-110); Lipase 30 U/L (8-78); Potassium 4.1 mmol/L (3.5-5.1); Protein, Total 7.7 g/dL (5.8-8.1); Sodium 137 mmol/L (136-145)
[2024-04-17 12:06] LABS: Troponin I Less than 0.010 ng/mL (< 0.028)
[2024-04-17] MEDS ORDERED: Dicyclomine 20 MG/2 ML VIAL ONE (13:33)
[2024-04-17] MEDS ORDERED: Ondansetron PF 4 MG/2 ML Vial ONE (13:33)
== END 2024-04-17 16:19 | disposition home or self-care (01) ==
LOC: ERS 10:52
DX: R19.7 Diarrhea, unspecified (principal); D64.9 Anemia, unspecified; I10 Essential (primary) hypertension
CPT/HCPCS: 71045; 74177; 80053; 83605; 83690; 83735; 83880; 84484; 85025; 93005; J2405; 96372; 96374